=== PATIENT | male | born 1970 | race Caucasian/White ===

== ENCOUNTER 2018-04-28 18:16 | Emergency (ER) | payer OTHER ==
--- NOTE | 2018-04-28 18:27 | ER Report ---
History and Physical Time Seen By MD: 18:23 HPI/ROS CHIEF COMPLAINT:? CO poisoning HISTORY OF PRESENT ILLNESS: 48-year-old male 21 [employer] presents ambulatory to the ER complaining of car monoxide poisoning. Patient was working on water heaters that were installed incorrectly. The exhaust in the area intake were switched backwards. Patient was working in this room without any current monoxide detector for potentially 7-1/2 hours. Patient was unable to get up due to severe headache and dizziness. He began to have dry heaves. Patient states she's had carbon monoxide poisoning before. This feels very similar. Patient denies chest pain or shortness of breath. REVIEW OF SYSTEMS: Respiratory: No cough, no dyspnea. Cardiovascular: No chest pain, no palpitations. Gastrointestinal: No vomiting, no abdominal pain. Musculoskeletal: No back pain. Allergies: Coded Allergies: codeine (Verified Allergy, Unknown, RASH, 04/28/18) morphine (Verified Allergy, Unknown, ANAPHYLAXIS, 04/28/18) Home Meds No Active Prescriptions or Reported Meds Reviewed Nurses Notes: Yes Old Medical Records Reviewed: Yes Constitutional Vital Sign - Last 24 Hours 04/28/18 04/28/18 04/28/18 04/28/18 18:16 18:22 18:30 18:31 Pulse ? B/P (MAP) 163/86 (111) 138/84 (102) Pulse Ox 97 04/28/18 04/28/18 04/28/18 04/28/18 18:33 18:37 18:46 19:00 Temp 98.2 Pulse 96 82 Resp 18 8 B/P (MAP) 138/84 133/87 (102) Pulse Ox 100 98 O2 Delivery Non-Rebreather O2 Flow Rate 15.0 04/28/18 04/28/18 04/28/18 04/28/18 19:01 19:16 19:30 19:31 Pulse 81 79 84 Resp 12 7 8 B/P (MAP) 118/93 (101) Pulse Ox 99 98 97 04/28/18 04/28/18 04/28/18 04/28/18 19:46 20:00 20:01 20:06 Pulse 88 87 81 Resp 12 12 17 B/P (MAP) 127/83 (98) Pulse Ox 98 100 98 04/28/18 04/28/18 04/28/18 04/28/18 20:21 20:30 20:36 20:51 Pulse 78 74 77 Resp 18 16 18 B/P (MAP) 114/78 (90) Pulse Ox 98 99 99 04/28/18 04/28/18 21:00 21:06 Pulse 84 Resp 18 B/P (MAP) 122/83 (96) Pulse Ox 99 Physical Exam Vital signs stable, afebrile, pulse ox normal. Patient placed on 100% nonrebreather mask at 15 L General Appearance: The patient is alert, has no immediate need for airway protection and no current signs of toxicity. Moderate distress, appearance of headache, mild injection of the eyes HEENT: Pupils equal and round no injection. TMs normal, oropharynx with strawberry tongue. Respiratory: Chest is non tender, lungs are clear to auscultation. No wheezing or rails Cardiac: regular rate and rhythm, no murmur Gastrointestinal: Abdomen is soft and non tender, no masses, bowel sounds normal. Musculoskeletal: Neck: Neck is supple and non tender. No lymphadenopathy Extremities have full range of motion and are non tender. No edema Skin: No rashes or lesions. Neuro: Alert and oriented 3, cranial nerves II through XII intact motor 5/5 all groups, sensory intact to light touch 4 DIFFERENTIAL DIAGNOSIS: After history and physical exam differential diagnosis was considered for headache including but not limited to subarachnoid hemorrhage, migraine headache, tension headache and infectious causes such as meningitis, pharyngitis, carbon monoxide poisoning and sinusitis. Medical Decision Making Data Points Result Diagram: 04/28/18 1830 04/28/18 1830 Laboratory Hematology Test 04/28/18 18:30 Red Blood Count 5.81 M/uL (4.00-5.60) Mean Corpuscular Volume 87.4 fL (80.0-96.0) Mean Corpuscular Hemoglobin 31.0 pg (26.0-33.0) Mean Corpuscular Hemoglobin Concent 35.5 g/dL (32.0-36.0) Red Cell Distribution Width 12.5 % (11.5-14.5) Mean Platelet Volume 7.6 fL (7.2-11.1) Neutrophils (%) (Auto) 77.7 % (39.4-72.5) Lymphocytes (%) (Auto) 15.4 % (17.6-49.6) Monocytes (%) (Auto) 6.0 % (4.1-12.4) Eosinophils (%) (Auto) 0.3 % (0.4-6.7) Basophils (%) (Auto) 0.6 % (0.3-1.4) Nucleated RBC Relative Count (auto) 0.0 /100WBC Neutrophils # (Auto) 15.4 K/uL (2.0-7.4) Lymphocytes # (Auto) 3.0 K/uL (1.3-3.6) Monocytes # (Auto) 1.2 K/uL (0.3-1.0) Eosinophils # (Auto) 0.1 K/uL (0.0-0.5) Basophils # (Auto) 0.1 K/uL (0.0-0.1) Nucleated RBC Absolute Count (auto) 0.01 K/uL Carboxyhemoglobin 23.8 % (< 5.0) Sodium Level 141 mmol/L (137-145) Potassium Level 4.5 mmol/L (3.5-5.0) Chloride Level 105 mmol/L (98-107) Carbon Dioxide Level 25 mmol/L (22-30) Blood Urea Nitrogen 21 mg/dl (9-21) Creatinine 1.40 mg/dl (0.66-1.25) Glomerular Filtration Rate Calc 54.1 Random Glucose 101 mg/dl (75-110) Calcium Level 10.4 mg/dl (8.4-10.2) Total Bilirubin 0.5 mg/dl (0.2-1.3) Aspartate Amino Transf (AST/SGOT) 29 U/L (0-35) Alanine Aminotransferase (ALT/SGPT) 46 U/L (0-56) Alkaline Phosphatase 76 U/L (0-126) Troponin I < 0.012 ng/ml Total Protein 7.8 g/dl (6.3-8.2) Albumin 4.7 g/dl (3.5-5.0) Chemistry Test 04/28/18 18:30 White Blood Count 19.8 k/uL (4.5-11.0) Red Blood Count 5.81 M/uL (4.00-5.60) Hemoglobin 18.0 g/dL (14.0-18.0) Hematocrit 50.8 % (42.0-52.0) Mean Corpuscular Volume 87.4 fL (80.0-96.0) Mean Corpuscular Hemoglobin 31.0 pg (26.0-33.0) Mean Corpuscular Hemoglobin Concent 35.5 g/dL (32.0-36.0) Red Cell Distribution Width 12.5 % (11.5-14.5) Platelet Count 365 K/uL (150-450) Mean Platelet Volume 7.6 fL (7.2-11.1) Neutrophils (%) (Auto) 77.7 % (39.4-72.5) Lymphocytes (%) (Auto) 15.4 % (17.6-49.6) Monocytes (%) (Auto) 6.0 % (4.1-12.4) Eosinophils (%) (Auto) 0.3 % (0.4-6.7) Basophils (%) (Auto) 0.6 % (0.3-1.4) Nucleated RBC Relative Count (auto) 0.0 /100WBC Neutrophils # (Auto) 15.4 K/uL (2.0-7.4) Lymphocytes # (Auto) 3.0 K/uL (1.3-3.6) Monocytes # (Auto) 1.2 K/uL (0.3-1.0) Eosinophils # (Auto) 0.1 K/uL (0.0-0.5) Basophils # (Auto) 0.1 K/uL (0.0-0.1) Nucleated RBC Absolute Count (auto) 0.01 K/uL Carboxyhemoglobin 23.8 % (< 5.0) Glomerular Filtration Rate Calc 54.1 Calcium Level 10.4 mg/dl (8.4-10.2) Total Bilirubin 0.5 mg/dl (0.2-1.3) Aspartate Amino Transf (AST/SGOT) 29 U/L (0-35) Alanine Aminotransferase (ALT/SGPT) 46 U/L (0-56) Alkaline Phosphatase 76 U/L (0-126) Troponin I < 0.012 ng/ml Total Protein 7.8 g/dl (6.3-8.2) Albumin 4.7 g/dl (3.5-5.0) EKG/Imaging EKG Interpretation 12 lead EK Rhythm: normal sinus rhythm [place]: normal QRS: normal ST segments: normal, no evidence of ischemia ED Course/Re-evaluation Clinical Indication for ER IV: IV Access ED Course Patient was admitted to an examination room. H&P was done. The differential diagnoses was considered. Patient with suspicious clinical findings for carbon monoxide poisoning. He was working in a room with water heaters with the exhaust was hooked up incorrectly. Developed a headache. He thinks he has carb on monoxide poisoning. His level returns at 24. Patient is placed on high flow O2 for 3 hours. And then discharged home feeling much better. Patient advised that he may have headaches. He is advised ibuprofen. Decision to Disposition Date: Apr 28, 2018 Decision to Disposition Time: 19:04 Depart Departure Latest Vital Signs Vital Signs Date Time Temp Pulse Resp B/P (MAP) Pulse Ox O2 Delivery O2 Flow Rate FiO2 04/28/18 21:06 84 18 99 04/28/18 21:00 122/83 (96) 04/28/18 18:37 98.2 Non-Rebreather 04/28/18 18:33 15.0 Impression: Primary Impression: Carbon monoxide poisoning Additional Impressions: Headache Vomiting Condition: Improved Disposition: HOME OR SELF-CARE Referrals: ALTON SOLIZ MD New Scripts No Active Prescriptions or Reported Meds Patient Instructions: Carbon Monoxide Poisoning (ED) Additional Instructions: Follow-up with [facility] orthopedic services for knee problems. [phone], address [address] Problem Qualifiers Primary Impression: Carbon monoxide poisoning Encounter type: initial encounter Injury intent: accidental or unintentional Qualified Codes: T58.91XA - Toxic effect of carbon monoxide from unspecified source, accidental (unintentional), initial encounter Additional Impressions: Headache Headache type: unspecified Headache chronicity pattern: acute headache Intractability: not intractable Qualified Codes: R51 - Headache Vomiting Vomiting type: unspecified Vomiting Intractability: unspecified Nausea presence: unspecified Qualified Codes: R11.10 - Vomiting, unspecified JOSELYN STEVE DO Apr 28, 2018 18:27
--- NOTE | 2018-04-28 18:42 | EKG ---
FACILITY: [facility] PATIENT NAME: AICHA YOO : [id number] MR: [id number] V: [id number] EXAM DATE: ORDERING PHYSICIAN: JOSELYN STEVE TECHNOLOGIST: MONTRELL Test Reason : CO POISON Blood Pressure : / mmHG Vent. Rate : 082 BPM Atrial Rate : 082 BPM P-R Int : 136 ms QRS Dur : 074 ms QT Int : 360 ms P-R-T Axes : 066 070 049 degrees QTc Int : 420 ms Sinus rhythm No acute appearing findings Artifact in V1-V2 repeat if needed No previous ECGs available Confirmed by ROBERT THAO ([id number] on 04/29/2018 6:08:42 AM Referred By: EVI Confirmed By:ROBERT THAO
[2018-04-28] MEDS: ONDANSETRON 4 MG/2 ML VIAL IVP ONE (18:48)
[2018-04-28 18:50] LABS: PLATELET COUNT, AUTOMATED 365 K/uL (150-450)
[2018-04-28] MEDS: ACETAMINOPHEN 325 MG TAB PO ONE (20:22)
[2018-04-28 21:00] VITALS: BP 122/83
== END 2018-04-28 21:12 | disposition home or self-care (01) ==
LOC: ER 18:37
DX: T58.91XA Toxic effect of carbon monoxide from unspecified source, accidental (unintentional), initial encounter (principal); R51 Headache; R11.10 Vomiting, unspecified
CPT/HCPCS: 82375; 84484; 85025; 93005; 96374; 99283; J2405; 82040; 82247; 82310; 82374; 82435; 82565; 82947; 84075; 84132; 84155; 84295; 84450; 84460; 84520